=== PATIENT | male | born 1970 | race Caucasian/White ===

== ENCOUNTER 2023-03-17 08:11 | Emergency (ER) | payer SELFPAY ==
[2023-03-17 08:50] VITALS: BMI 26.4
[2023-03-17] MEDS ORDERED: ACETAMINOPHEN 1000 MG/100 ML BAG IVPB ONE (09:03)
[2023-03-17] MEDS ORDERED: SODIUM CHLORIDE 0.9% 500 ML INFUS.BAG IV ONE (09:12)
[2023-03-17] MEDS ORDERED: ONDANSETRON 4 MG/2 ML VIAL IVPUSH ONE (09:12)
[2023-03-17] MEDS ORDERED: ONDANSETRON 4 MG/2 ML VIAL ONE (09:34)
[2023-03-17] MEDS ORDERED: ACETAMINOPHEN INJECTION 100 ML IVPB ONE (09:34)
[2023-03-17 09:59] LABS: BASO % 0.5 % (0-2.0); EOS % 1.2 % (0-4.5); HEMATOCRIT 45.4 % (35.4-49); HEMOGLOBIN 15.4 GM/dL (11.7-16.9); LYMPH % 31.5 % (8-40); MCH 30.8 pg (25.7-33.7); MCHC 33.9 g/dl (32.0-35.9); MEAN CELL VOLUME 90.8 fl (80-96); MEAN PLT VOLUME 7.6 fl (7.5-11.1); MONO % 6.7 % (3.8-10.2); NEUT % 60.1 % (42.8-82.8); PLATELET COUNT 193 10^3/uL (134-434); RDW 13.7 % (11.9-15.9); WHITE BLOOD COUNT 6.5 K/mm3 (4.0-10.0)
[2023-03-17 10:17] LABS: POTASSIUM 4.1 mmol/L (3.5-5.1)
[2023-03-17 10:20] LABS: ALBUMIN 4.1 g/dl (3.4-5.0); BLOOD UREA NITROGEN 13.6 mg/dL (7-18)
[2023-03-17 10:22] LABS: CREATININE 0.8 mg/dL (0.55-1.3)
[2023-03-17 10:24] LABS: BILIRUBIN,TOTAL 1.2 mg/dL (0.2-1); TOT PROT 7.7 g/dl (6.4-8.2)
[2023-03-17 10:54] LABS: URINE APPEARANCE CLEAR; URINE BILIRUBIN NEGATIVE (NEGATIVE); URINE COLOR YELLOW; URINE GLUCOSE (UA) NEGATIVE (NEGATIVE); URINE KETONE NEGATIVE (NEGATIVE); URINE LEUK ESTERASE NEGATIVE (NEGATIVE); URINE NITRITE NEGATIVE (NEGATIVE); URINE PROTEIN NEGATIVE (NEGATIVE); URINE UROBILINOGEN 0.2 mg/dL (0.2-1.0)
[2023-03-17 12:18] VITALS: BP 125/81; PULSE 62; RESP 20; TEMP 98.2
== END 2023-03-17 12:19 | disposition home or self-care (01) ==
LOC: JER 08:11
PROC: 3E033NZ Introduction of Analgesics, Hypnotics, Sedatives into Peripheral Vein, Percutaneous Approach (ICD-10-PCS; principal; 2023-03-17)
PROC: 3E033GC Introduction of Other Therapeutic Substance into Peripheral Vein, Percutaneous Approach (ICD-10-PCS; 2023-03-17)
DX: R10.32 Left lower quadrant pain (principal); K92.1 Melena; R11.0 Nausea
CPT/HCPCS: 36415; 74177-TC; 80053; 81003; 83690; 84484; 85025; 87086; 93005; 93010; 99285-25; Q9967

== ENCOUNTER 2024-02-21 09:03 | Emergency (ER) | payer OTHER ==
[2024-02-21 09:08] VITALS: BP 117/70; PULSE 69; RESP 18; TEMP 98.8; BMI 32.3
[2024-02-21 10:33] LABS: PH,URINE 6.5 (5.0-8.0); URINE APPEARANCE CLEAR; URINE BILIRUBIN NEGATIVE (NEGATIVE); URINE COLOR YELLOW; URINE GLUCOSE (UA) NEGATIVE (NEGATIVE); URINE KETONE NEGATIVE (NEGATIVE); URINE LEUK ESTERASE NEGATIVE (NEGATIVE); URINE NITRITE NEGATIVE (NEGATIVE); URINE PROTEIN NEGATIVE (NEGATIVE)
[2024-02-21] MEDS: PHENAZOPYRIDINE HCL 100 MG TABLET (FP) PO ONE (11:13)
[2024-02-21] MEDS: ACETAMINOPHEN 500 MG TABLET (FP) PO ONE (11:13)
[2024-02-21] MEDS ORDERED: ACETAMINOPHEN 325 MG TABLET (FP) ONE (12:07)
[2024-02-21] MEDS ORDERED: PHENAZOPYRIDINE HCL 100 MG TABLET (FP) ONE (12:07)
== END 2024-02-21 12:16 | disposition home or self-care (01) ==
LOC: JER 09:03
DX: R35.0 Frequency of micturition (principal); R30.0 Dysuria; N48.89 Other specified disorders of penis
CPT/HCPCS: 36415; 81003; 87086; 87491; 87591; 99283-25